=== PATIENT | female | born 1990 | race Caucasian/White ===

== ENCOUNTER → 2018-09-25 | Outpatient (CLI) | payer OTHER ==
[2018-09-25 18:35] LABS: BASO % 0.5 % (0.0-1.0); EOS # 0.1 10^3/uL (0.0-0.50); EOS % 1.5 % (0.0-3.0); HEMATOCRIT 43.8 % (36.0-47.0); HEMOGLOBIN 14.5 g/dl (12.0-15.5); LYMPH # 1.9 10^3/uL (1.5-6.5); LYMPH % 30.1 % (24.0-44.0); MEAN CORPUSCULAR HEMOGLOBIN 28.5 pg (27.0-33.0); MEAN CORPUSCULAR HGB CONC 33.1 g/dl (32.0-36.5); MEAN CORPUSCULAR VOLUME 86.1 fl (80.0-96.0); MONO # 0.5 10^3/uL (0.0-0.8); MONO % 8.6 % (0.0-5.0); NEUTROPHILS # 3.6 10^3/uL (1.8-7.7); NEUTROPHILS % 59.1 % (36.0-66.0); PLATELET COUNT, AUTOMATED 251 10^3/uL (150-450); RED BLOOD COUNT 5.09 10^6/uL (4.00-5.40); WHITE BLOOD COUNT 6.1 10^3/uL (4.0-10.0)
[2018-09-25 18:42] LABS: FREE T4 1.08 NG/DL (0.76-1.46); THYROID STIMULATING HORMONE 1.92 uIU/ML (0.358-3.740)
[2018-09-25 19:38] LABS: CHLAMYDIA DNA AMPLIFICATION NEGATIVE (NEGATIVE); GC DNA AMPLIFICATION NEGATIVE (NEGATIVE)
[2018-09-26 11:01] LABS: TOTAL 25(OH) VITAMIN D 11.7 NG/ML (30.0-100.0)
== END ==
LOC: M SMT 11:01
PROVIDERS: ATTEND Family Medicine
DX: Z13.29 Encounter for screening for other suspected endocrine disorder (principal); Z13.0 Encounter for screening for diseases of the blood and blood-forming organs and certain disorders involving the immune mechanism

== ENCOUNTER → 2018-10-07 | Outpatient (REF) | payer OTHER | LOC: M LAB REF 17:14 | PROVIDERS: ATTEND Physician Assistant | DX: R30.0 Dysuria (principal) ==

== ENCOUNTER 2018-11-29 07:14 | Emergency (ER) | payer OTHER ==
[~2018-11-29] VITALS: Ht 165.1 cm; Wt 84.1 kg
[2018-11-29] MEDS ORDERED: D31000CA4 PO (07:21)
[2018-11-29] MEDS ORDERED: ZOLO50TA PO (07:21)
[2018-11-29 08:10] LABS: BILIRUBIN, URINE MANUAL OBSCURED (NEGATIVE); GLUCOSE, URINE (UA) MANUAL NEGATIVE (NEGATIVE); KETONE, URINE MANUAL OBSCURED mg/dL (NEGATIVE); UROBILINOGEN, URINE MANUAL OBSCURED mg/dl (NORMAL)
[2018-11-29] MEDS ORDERED: PHENAZOPYRIDINE 100 MG TAB PO ONE (09:00)
[2018-11-29] MEDS ORDERED: BACTRIM 160MG/800MG DS TAB PO ONE (09:00)
[2018-11-29 09:26] LABS: RBC, URINE TNTC /hpf (0-3)
[2018-11-29 09:27] LABS: BACTERIA, URINE SMALL AMOUNT; RENAL EPITHELIAL CELLS, URINE MOD AMOUNT /hpf; SQUAMOUS EPITHELIAL CELL URINE SMALL AMOUNT /hpf (SMALL AMT)
[2018-11-29 09:28] LABS: AMORPHOUS SEDIMENT, URINE SMALL AMOUNT (NEGATIVE)
[2018-11-29] MEDS ORDERED: SULF1TAB93 PO (09:28)
[2018-11-29 09:38] VITALS: BP 126/78
[2018-11-29 10:07] LABS: HYALINE CAST, URINE NONE SEEN /lpf (0-1)
== END 2018-11-29 09:39 | disposition home or self-care (01) ==
LOC: M ED 07:14
DX: N39.0 Urinary tract infection, site not specified (principal); F41.9 Anxiety disorder, unspecified; Z87.448 Personal history of other diseases of urinary system; Z79.899 Other long term (current) drug therapy

== ENCOUNTER → 2019-02-14 | Outpatient (REF) | payer OTHER ==
[~2019-02-14] MED LIST: D31000CA4 PO; SULF1TAB93 PO; ZOLO50TA PO
[2019-02-18 10:50] LABS: APPEARANCE, URINE CLOUDY (CLEAR); BILIRUBIN, URINE AUTO NEGATIVE (NEGATIVE); BLOOD, URINE BLOOD 2+ (NEGATIVE); COLOR, URINE YELLOW (YELLOW); GLUCOSE, URINE (UA) AUTO NEGATIVE (NEGATIVE); KETONE, URINE AUTO NEGATIVE (NEGATIVE); LEUKOCYTE ESTERASE, URINE AUTO 3+ (NEGATIVE); NITRITE, URINE AUTO POSITIVE (NEGATIVE); PROTEIN, URINE AUTO 1+ mg/dL (NEGATIVE); SPECIFIC GRAVITY URINE AUTO 1.019 (1.002-1.035); UROBILINOGEN, URINE AUTO 0.2 mg/dL (0.0-2.0); WBC, URINE AUTO TNTC /HPF (0-3)
[2019-02-18 10:51] LABS: BACTERIA, URINE AUTO 1+ (NEGATIVE); CALCIUM OXALATE CRYSTALS MOD; MUCUS, URINE SMALL (NEGATIVE); RBC, URINE AUTO 9 /HPF (0-3); SQUAMOUS EPITHELIAL CELL UR AU 1 /HPF (0-6)
== END ==
LOC: M LAB REF 10:35
PROVIDERS: ATTEND Physician Assistant Medical
DX: N39.0 Urinary tract infection, site not specified (principal)

== ENCOUNTER → 2019-07-20 | Outpatient (REF) | payer OTHER ==
[2019-07-20 16:52] LABS: INFLUENZA A AMPLIFICATION NEGATIVE (NEGATIVE); INFLUENZA B AMPLIFICATION NEGATIVE (NEGATIVE)
== END ==
LOC: M LAB REF 16:15
PROVIDERS: ATTEND Physician Assistant Medical
DX: R50.9 Fever, unspecified (principal); M79.10 Myalgia, unspecified site

== ENCOUNTER → 2019-10-06 | Outpatient (CLI) | payer OTHER ==
[2019-10-06 19:48] LABS: FREE T4 1.11 NG/DL (0.76-1.46); THYROID STIMULATING HORMONE 1.73 uIU/ML (0.358-3.740); TOTAL 25(OH) VITAMIN D 32.7 NG/ML (30.0-100.0)
== END ==
LOC: M LAB 17:19
PROVIDERS: ATTEND Family Medicine
DX: E55.9 Vitamin D deficiency, unspecified (principal)

== ENCOUNTER → 2020-10-20 | Outpatient (CLI) | payer OTHER ==
[2020-10-20 16:30] LABS: ALBUMIN 4.2 GM/DL (3.2-5.2); ALT/SGPT 24 U/L (12-78); BILIRUBIN,TOTAL 0.6 MG/DL (0.2-1.0); BLOOD UREA NITROGEN 9 MG/DL (7-18); CALCIUM LEVEL 9.1 MG/DL (8.5-10.1); CARBON DIOXIDE LEVEL 29 MEQ/L (21-32); CHLORIDE LEVEL 106 MEQ/L (98-107); CHOLESTEROL LEVEL 175 MG/DL (<200); CHOLESTEROL RISK RATIO 3.977 (<5); CREATININE FOR GFR 0.77 MG/DL (0.55-1.30); GLOMERULAR FILTRATION RATE > 60.0 (>60); GLUCOSE, FASTING 77 MG/DL (70-100); HDL CHOLESTEROL 44 MG/DL (>40); LDL CHOLESTEROL 110 MG/DL (<100); NON-HDL-C 131 MG/DL; SODIUM LEVEL 141 MEQ/L (136-145); TOTAL PROTEIN 7.4 GM/DL (6.4-8.2); TRIGLYCERIDES LEVEL 107 MG/DL (<150)
[2020-10-20 16:34] LABS: BASO % 0.6 % (0.0-1.0); EOS # 0.2 10^3/uL (0.0-0.5); EOS % 2.5 % (0.0-3.0); HEMATOCRIT 40.8 % (36.0-47.0); HEMOGLOBIN 13.4 g/dl (12.0-15.5); LYMPH % 27.2 % (24.0-44.0); MEAN CORPUSCULAR HEMOGLOBIN 28.8 pg (27.0-33.0); MEAN CORPUSCULAR HGB CONC 32.8 g/dl (32.0-36.5); MEAN CORPUSCULAR VOLUME 87.7 fl (80.0-96.0); MONO # 0.8 10^3/uL (0.0-0.8); MONO % 10.3 % (2.0-8.0); NEUTROPHILS # 4.3 10^3/uL (1.5-8.5); NEUTROPHILS % 59.1 % (36.0-66.0); PLATELET COUNT, AUTOMATED 290 10^3/uL (150-450); RED BLOOD COUNT 4.65 10^6/uL (4.00-5.40); WHITE BLOOD COUNT 7.3 10^3/uL (4.0-10.0)
== END ==
LOC: M WUC 11:01
PROVIDERS: ATTEND Physician Assistant
DX: E55.9 Vitamin D deficiency, unspecified (principal); Z13.220 Encounter for screening for lipoid disorders

== ENCOUNTER 2021-06-30 02:00 | Emergency (ER) | payer OTHER ==
[~2021-06-30] VITALS: Ht 165.1 cm; Wt 100.9 kg
[~2021-06-30 02:00] MED LIST changes: +BACTDSTA PO; -SULF1TAB93 PO
[2021-06-30] MEDS ORDERED: IBUP200C29 PO (02:08)
[2021-06-30] MEDS ORDERED: VENTAER INH (02:08)
--- OUTSIDE RECORDS SUMMARY | 2021-06-30 02:08 | CCD ---
Author Author [facility] Organization [facility] Address Unknown Phone Unavailable Care Team Providers Care Broadcast Traffic Coordinator Name Role Phone GWENDOLYN-ANUEL, JAMAR DO Unavailable Unavailable GWENDOLYN-ANUEL, JAMAR DO Unavailable Unavailable GWENDOLYN-ANUEL, JAMAR DO Unavailable Unavailable GWENDOLYN-ANUEL, JAMAR DO Unavailable Unavailable GWENDOLYN-ANUEL, JAMAR DO Unavailable Unavailable GWENDOLYN-ANUEL, JAMAR DO Unavailable Unavailable GWENDOLYN-ANUEL, JAMAR DO Unavailable Unavailable GWENDOLYN-ANUEL, JAMAR DO Unavailable Unavailable GWENDOLYN-ANUEL, JAMAR DO Unavailable Unavailable GWENDOLYN-ANUEL, JAMAR DO Unavailable Unavailable GWENDOLYN-ANUEL, JAMAR DO Unavailable Unavailable GWENDOLYN-ANUEL, JAMAR DO Unavailable Unavailable GWENDOLYN-ANUEL, JAMAR DO Unavailable Unavailable GWENDOLYN-ANUEL, JAMAR DO Unavailable Unavailable GWENDOLYN-ANUEL, JAMAR DO Unavailable Unavailable GWENDOLYN-ANUEL, JAMAR DO Unavailable Unavailable GWENDOLYN-ANUEL, JAMAR DO Unavailable Unavailable GWENDOLYN-ANUEL, JAMAR DO Unavailable Unavailable GWENDOLYN-ANUEL, JAMAR DO Unavailable Unavailable GWENDOLYN-ANUEL, JAMAR DO Unavailable Unavailable GWENDOLYN-ANUEL, JAMAR DO Unavailable Unavailable GWENDOLYN-ANUEL, JAMAR DO Unavailable Unavailable GWENDOLYN-ANUEL, JAMAR DO Unavailable Unavailable GWENDOLYN-ANUEL, JAMAR DO Unavailable Unavailable GWENDOLYN-ANUEL, JAMAR DO Unavailable Unavailable GWENDOLYN-ANUEL, JAMAR DO Unavailable Unavailable GWENDOLYN-ANUEL, JAMAR DO Unavailable Unavailable GWENDOLYN-ANUEL, JAMAR DO Unavailable Unavailable GWENDOLYN-ANUEL, JAMAR DO Unavailable Unavailable GWENDOLYN-ANUEL, JAMAR DO Unavailable Unavailable GWENDOLYN-ANUEL, JAMAR DO Unavailable Unavailable GWENDOLYN-ANUEL, JAMAR DO Unavailable Unavailable GWENDOLYN-ANUEL, JAMAR DO Unavailable Unavailable GWENDOLYN-ANUEL, JAMAR DO Unavailable Unavailable GWENDOLYN-ANUEL, JAMAR DO Unavailable Unavailable GWENDOLYN-ANUEL, JAMAR DO Unavailable Unavailable GWENDOLYN-ANUEL, JAMAR DO Unavailable Unavailable GWENDOLYN-ANUEL, JAMAR DO Unavailable Unavailable GWENDOLYN-ANUEL, JAMAR DO Unavailable Unavailable GWENDOLYN-ANUEL, JAMAR DO Unavailable Unavailable GWENDOLYN-ANUEL, JAMAR DO Unavailable Unavailable GWENDOLYN-ANUEL, JAMAR DO Unavailable Unavailable GWENDOLYN-ANUEL, JAMAR DO Unavailable Unavailable GWENDOLYN-ANUEL, JAMAR DO Unavailable Unavailable GWENDOLYN-ANUEL, JAMAR DO Unavailable Unavailable GWENDOLYN-ANUEL, JAMAR DO Unavailable Unavailable GWENDOLYN-ANUEL, JAMAR DO Unavailable Unavailable GWENDOLYN-ANUEL, JAMAR DO Unavailable Unavailable GWENDOLYN-ANUEL, JAMAR DO Unavailable Unavailable GWENDOLYN-ANUEL, JAMAR DO Unavailable Unavailable GWENDOLYN-ANUEL, JAMAR DO Unavailable Unavailable GWENDOLYN-ANUEL, JAMAR DO Unavailable Unavailable GWENDOLYN-ANUEL, JAMAR DO Unavailable Unavailable GWENDOLYN-ANUEL, JAMAR DO Unavailable Unavailable GWENDOLYN-ANUEL, JAMAR DO Unavailable Unavailable GWENDOLYN-ANUEL, JAMAR DO Unavailable Unavailable GWENDOLYN-ANUEL, JAMAR DO Unavailable Unavailable GWENDOLYN-ANUEL, JAMAR DO Unavailable Unavailable GWENDOLYN-ANUEL, JAMAR DO Unavailable Unavailable GWENDOLYN-ANUEL, JAMAR DO Unavailable Unavailable GWENDOLYN-ANUEL, JAMAR DO Unavailable Unavailable GWENDOLYN-ANUEL, JAMAR DO Unavailable Unavailable GWENDOLYN-ANUEL, JAMAR DO Unavailable Unavailable GWENDOLYN-ANUEL, JAMAR DO Unavailable Unavailable GWENDOLYN-ANUEL, JAMAR DO Unavailable Unavailable GWENDOLYN-ANUEL, JAMAR DO Unavailable Unavailable GWENDOLYN-ANUEL, JAMAR DO Unavailable Unavailable GWENDOLYN-ANUEL, JAMAR DO Unavailable Unavailable GWENDOLYN-ANUEL, JAMAR DO Unavailable Unavailable GWENDOLYN-ANUEL, JAMAR DO Unavailable Unavailable GWENDOLYN-ANUEL, JAMAR DO Unavailable Unavailable GWENDOLYN-ANUEL, JAMAR DO Unavailable Unavailable GWENDOLYN-ANUEL, JAMAR DO Unavailable Unavailable GWENDOLYN-ANUEL, JAMAR DO Unavailable Unavailable GWENDOLYN-ANUEL, JAMAR DO Unavailable Unavailable GWENDOLYN-ANUEL, JAMAR DO Unavailable Unavailable GWENDOLYN-ANUEL, JAMAR DO Unavailable Unavailable GWENDOLYN-ANUEL, JAMAR DO Unavailable Unavailable GWENDOLYN-ANUEL, JAMAR DO Unavailable Unavailable GWENDOLYN-ANUEL, JAMAR DO Unavailable Unavailable GWENDOLYN-ANUEL, JAMAR DO Unavailable Unavailable GWENDOLYN-ANUEL, JAMAR DO Unavailable Unavailable GWENDOLYN-ANUEL, JAMAR DO Unavailable Unavailable GWENDOLYN-ANUEL, JAMAR DO Unavailable Unavailable O'jcarlos, A Huber PA Unavailable Unavailable O'jcarlos, A Huber PA Unavailable Unavailable O'jcarlos, A Huber PA Unavailable Unavailable O'jcarlos, A Huber PA Unavailable Unavailable O'jcarlos, A Huber PA Unavailable Unavailable O'jcarlos, A Huber PA Unavailable Unavailable O'jcarlos, A Huber PA Unavailable Unavailable O'jcarlos, A Huber PA Unavailable Unavailable O'jcarlos, A Huber PA Unavailable Unavailable O'jcarlos, A Huber PA Unavailable Unavailable O'jcarlos, A Huber PA Unavailable Unavailable O'jcarlos, A Huber PA Unavailable Unavailable O'jcarlos, A Huber PA Unavailable Unavailable O'jcarlos, A Huber PA Unavailable Unavailable O'jcarlos, A Huber PA Unavailable Unavailable O'jcarlos, A Huber PA Unavailable Unavailable O'jcarlos, A Huber PA Unavailable Unavailable O'jcarlos, A Huber PA Unavailable Unavailable O'jcarlos, A Huber PA Unavailable Unavailable O'jcarlos, A Huber PA Unavailable Unavailable O'jcarlos, A Huber PA Unavailable Unavailable O'jcarlos, A Huber PA Unavailable Unavailable O'jcarlos, A Huber PA Unavailable Unavailable O'jcarlos, A Huber PA Unavailable Unavailable O'jcarlos, A Huber PA Unavailable Unavailable O'jcarlos, A Huber PA Unavailable Unavailable O'jcarlos, A Huber PA Unavailable Unavailable O'jcarlos, A Huber PA Unavailable Unavailable O'jcarlos, A Huber PA Unavailable Unavailable O'jcarlos, A Huber PA Unavailable Unavailable O'jcarlos, A Huber PA Unavailable Unavailable O'jcarlos, A Huber PA Unavailable Unavailable O'jcarlos, A Huber PA Unavailable Unavailable Re-disclosure Warning The records that you are about to access may contain information from federally-assisted alcohol or drug abuse programs. If such information is present, then the following federally mandated warning applies: This information has been disclosed to you from records protected by federal confidentiality rules (42 CFR part 2). The federal rules prohibit you from making any further disclosure of this information unless further disclosure is expressly permitted by the written consent of the person to whom it pertains or as otherwise permitted by 42 CFR part 2. A general authorization for the release of medical or other information is NOT sufficient for this purpose. The Federal rules restrict any use of the information to criminally investigate or prosecute any alcohol or drug abuse patient.The records that you are about to access may contain highly sensitive health information, the redisclosure of which is protected by Article 27-F of the [facility] Public Health law. If you continue you may have access to information: Regarding HIV / AIDS; Provided by facilities licensed or operated by the [facility] Office of Mental Health; or Provided by the [facility] Office for People With Developmental Disabilities. If such information is present, then the following [facility] mandated warning applies: This information has been disclosed to you from confidential records which are protected by state law. State law prohibits you from making any further disclosure of this information without the specific written consent of the person to whom it pertains, or as otherwise permitted by law. Any unauthorized further disclosure in violation of state law may result in a fine or penitentiary sentence or both. A general authorization for the release of medical or other information is NOT sufficient authorization for further disc losure. Family History Family Member Name Family Member Gender Family Member Status Date o f Status Description Data Source(s) Unknown Female Problem [facility] ([facility]) Unknown Unknown Problem [facility] ([facility] Unknown Unknown Problem [facility] ([facility]) Encounters Encounter Providers Location Date Indications Data Source(s ) Outpatient Attender: Huber REEVES [facility] 05/18/2021 09:20:00 AM EDT [facility] ([facility]) Outpatient Attender: JAMAR EASLEY DO [facility] 10/25/2020 11:00:00 AM EDT [facility] ([facility]) Outpatient Attender: Huber REEVES [facility] 10/18/2020 10:00:00 AM EST [facility] ([facility]) Immunizations Vaccine Date Status Description Data Source(s) New in 2012. IIV4 05/18/2021 09:55:00 AM EDT completed [facility] ([facility]) COVID-19 VACCINE Pfizer 02/17/2021 12:00:00 AM EDT completed [facility] Vaccine Series Complete: YESThis Data wa s Submitted to [facility] Via [employer]. COVID-19 VACC, MRNA(PFIZER)/PF 01/27/2021 12:00:00 AM EDT completed [facility] COVID-19 VACCINE Pfizer 01/27/2021 12:00:00 AM EDT completed [facility] Vaccine Series Complete: NOThis Data was Submitted to [facility] Via [employer]. Medications Medication Brand Name Start Date Product Form Dose Route Admi nistrative Instructions Pharmacy Instructions Status Indications Reaction Description Data Source(s) 10 mg 05/20/2021 12:00:00 AM EDT tablet 180 TAKE 1 TABLET BY MOUTH EVERY 8 HOURS NEEDED FOR ANXIETY AND UP TO 3 BEFORE BED TO HELP WITH SLEEP IF NEEDED MAX 6 DAY TAKE 1 TABLET BY MOUTH EVERY 8 HOURS NEEDED FOR ANXIETY AND UP TO 3 BEFORE BED TO HELP WITH SLEEP IF NEEDED MAX 6 DAY SOLD: 06/02/2021 [facility] 25 mg 05/19/2021 12:00:00 AM EDT tablet 14 TAKE ONE TABLET BY MOUTH EVERY DAY FOR 7 DAYS AND THE 1 EVERY OTHER DAY FOR ANOTHER WEEK THEN DISCONTINUE TAKE ONE TABLET BY MOUTH EVERY DAY FOR 7 DAYS AND THE 1 EVERY OTHER DAY FOR ANOTHER WEEK THEN DISCONTINUE SOLD: 05/20/2021 [facility] Sertraline 25 MG Oral Tablet Sertraline HCL 05/18/2021 12:00:00 AM EDT ORAL active [facility] ([facility]) Hydroxyzine Hydrochloride 10 MG Oral Tablet Hydroxyzine HCL 05/18/2021 12:00:00 AM EDT ORAL active [facility] ([facility]) Insurance Providers Payer name Policy type / Coverage type Policy ID Covered constitution party ID Covered constitution party's relationship to storm Policy Storm Plan Information [facility] [id number] SP [id number] [facility] [id number] SP [id number] [facility] [employer] [id number] Self [id number] [facility] [employer] [id number] Self [id number] [facility] [employer] [id number] Self [id number] [facility] [employer] [id number] Self [id number] [facility] Lee Silber O [id number] S [id number] [facility] [employer] [id number] Self [facility] [employer] [id number] Self [facility] Lee Silber O [id number] [facility] [employer] [phone] Self Problems, Conditions, and Diagnoses Code Display Name Description Problem Type Effective Dates Data Source(s) E55.9 Vitamin D deficiency Vitamin D deficiency Problem 10/18/2020 12:00:00 AM EST [facility] ([facility]) Surgeries/Procedures Procedure Description Date Indications Data Source(s) OFFICE OUTPATIENT VISIT 15 MINUTES 05/18/2021 12:00:00 AM EDT [facility] ([facility]) Results ID Date Data Source [id number] 10/25/2020 10:58:00 AM EDT [facility] ([facility]) Name Value Range Interpretation Code Description Data Amanda rce(s) Supporting Document(s) Laboratory test finding (navigational concept) Laboratory test result [facility] ([facility]) ID Date Data Source [id number] 10/25/2020 10:58:00 AM EDT [facility] ([facility]) Name Value Range Interpretation Code Description Data Amanda rce(s) Supporting Document(s) Chlamydia trachomatis rRNA [Presence] in Unspecified specimen by Probe and target amplification method Laboratory test result Normal (a pplies to non- numeric results) [facility]) Comment Laboratory test result [facility] ([facility]) The analytical performance characteristi cs of this assay, when used to test SurePath(TM) specimens have been determined by [employer]. The modifications have not been cleared or approved by the FDA. This assay has been validated pursuant to the CLIA regulations and is used for clinical purposes. For additional information, please refer to https://education.Kamida/faq/KEK632 (This link is being provided for informa tion/ educational purposes only.) Neisseria gonorrhoeae rRNA [Presence] in Unspecified specimen by Probe and target amplification method Laboratory test result Normal (a pplies to non- numeric results) [facility]) ID Date Data Source [id number] 10/25/2020 10:58:00 AM EDT [facility] ([facility]) Name Value Range Interpretation Code Description Data Amanda rce(s) Supporting Document(s) Last menstrual period start date Laboratory test result Normal (applies to non-numeric results) [facility]) None given Service comment Laboratory test result Normal (a pplies to non-numeric results) [facility]) Clinical information Laboratory test result Norm al (applies to non-numeric results) [facility]) Routine exam Date of previous biopsy Laboratory test result N ormal (applies to non-numeric results) [facility]) None given Date of previous PAP smear Laboratory test result Normal (applies to non- numeric results) [facility]) None given General categories [Interpretation] of C ervical or vaginal smear or scraping by Cyto stain Laboratory test result Normal (applies to non-numeric results) [facility]) Statement of adequacy [Interpretation] o f Cervical or vaginal smear or scraping by Cyto stain Laboratory test result Normal (applies to non-nu meric results) [facility]) Satisfactory for evaluation. Endocervical/transformation zone component present. Specimen source [Identifier] in Cervical or vaginal smear or scraping by Cyto stain Laboratory test result Normal (applies to non-numeric results) [facility] ([facility]) Cervix, Endocervix Microscopic observation [Identifier] in Cervix by Cyto stain Laboratory test result Normal (applies to non-numeric results) [facility]) Negative for intraepithelial lesion or m alignancy. Microorganism identified in Cervical or vaginal smear or scraping by Cyto stain Laboratory test result Normal (applies to non-numeric results) [facility] ([facility]) Cytology study comment Cervical or vaginal smear or sc raping Cyto stain Laboratory test result Normal (applies to non-numeric results) [facility] ([facility]) This Pap test has been evaluated with SWIIM System technology. Polysomnographic Tech who read Cyto stain of Cervical or vaginal smear or scraping Laboratory test result Normal (applies to non-numeric results) [facility]) J, CT(ASCP) CT screening location: [place] [address] . Polysomnographic Tech who read Cyto stain of Cervical or vaginal smear or scraping Laboratory test result Normal (applies to non-numeric results) [facility] ([facility]) Pathologist who read Cyto stain of Cervical or vaginal smear or scraping Laboratory test result Normal (applies to non-numeric results) [facility] ([facility]) Comment Laboratory test result [facility] ([facility]) EXPLANATORY NOTE: The Pap is a screening test for cervical cancer. It is not a diagnostic test and is subject to false negative and false positive results. It is most reliable when a satisfactory sample, regularly obtained, is submitted with relevant clinical findings and history, and when the Pap result is evaluated along with historic and current clinical information. ID Date Data Source [id number] 10/25/2020 10:58:00 AM EDT [facility] ([facility]) Name Value Range Interpretation Code Description Data Amanda rce(s) Supporting Document(s) Service comment Laboratory test result [facility] ([facility]) This order for age-based cervical cancer and STI screening follows ACOG guidelines(PB 168, 140, DVQ159). See individual assays for performing site location. ID Date Data Source [id number] 10/20/2020 11:01:00 AM EST [facility] ([facility]) Name Value Range Interpretation Code Description Data Amanda rce(s) Supporting Document(s) HDL Cholesterol 44 mg/dL Normal (applies to non-numeric results) [facility] ([facility]) Cholesterol Level 175 mg/dL Normal (applies to non-numeri c results) [facility] ([facility]) Triglycerides Level 107 mg/dL Normal (applies to non-nume mike results) [facility] ([facility]) LDL Cholesterol 110 mg/dL Above high normal [facility] ([facility]) Cholesterol Risk Ratio 3.977 Normal (applies to non-n umeric results) [facility] ([facility]) Non-HDL-C 131 mg/dL Normal (applies to non-numeric resul ts) [facility] ([facility]) ID Date Data Source [id number] 10/20/2020 11:01:00 AM EST [facility] ([facility]) Name Value Range Interpretation Code Description Data Amanda rce(s) Supporting Document(s) Calcidiol [Mass/volume] in Serum or Plasma 32.0 ng/mL 30.0- 100.0 Normal (applies to non-numeric results) [facility] ([facility]) ID Date Data Source [id number] 10/20/2020 11:01:00 AM EST [facility] ([facility]) Name Value Range Interpretation Code Description Data Amanda rce(s) Supporting Document(s) Glucose, Fasting 77 mg/dL 70-100 Normal (applies to non-numeric results) [facility] ([facility]) Blood Urea Nitrogen 9 mg/dL 7-18 Normal (applies to non-nume mike results) [facility] ([facility]) Glomerular Filtration Rate Laboratory test result Normal (applies to non- numeric results) [facility] ([facility]) <content>Units are mL/min/1.73 m2</content>
<content></content>
<content>Chronic Kidney Disease Staging per NKF:</content>
<content></content>
<content>Stage I & II GFR >=60 Normal to Mildly Decreased</content>
<content>Stage III GFR 30- 59 Moderately Decreased</content>
<content>Stage IV GFR 15-29 Severely Decreased</content>
<content>Stage V GFR <15 Very Little GFR Left</content>
<content>ESRD GFR <15 on TOP IRONER</content>
<content></content> Creatinine For GFR 0.77 mg/dL 0.55-1.30 Normal (applies to non -numeric results) [facility] ([facility]) Sodium Level 141 meq/L 136-145 Normal (applies to non-numeric res ults) [facility] ([facility]) Carbon Dioxide Level 29 meq/L 21-32 Normal (applies to non-num cris results) [facility] Potassium Serum 4.0 meq/L 3.5-5.1 Normal (applies to non-numeric results) [facility] ([facility]) Chloride Level 106 meq/L 98-107 Normal (applies to non-numeric r esults) [facility] ([facility]) Anion Gap 6 meq/L 8-16 Below low normal [facility] Calcium Level 9.1 mg/dL 8.5-10.1 Normal (applies to non-numeric re sults) [facility] ([facility]) Ast/Sgot 10 U/L 7-37 Normal (applies to non-numeric resul ts) [facility] ([facility]) Alkaline Phosphatase 78 U/L 45-117 Normal (applies to non-num cris results) [facility] ([facility]) Alt/SGPT 24 U/L 12-78 Normal (applies to non-numeric resul ts) [facility] ([facility]) Albumin 4.2 GM/DL 3.2-5.2 Normal (applies to non-numeric resul ts) [facility] ([facility]) Total Protein 7.4 GM/DL 6.4-8.2 Normal (applies to non-numeric re sults) [facility] ([facility]) Bilirubin,Total 0.6 mg/dL 0.2-1.0 Normal (applies to non-numeric results) [facility] ([facility]) Albumin/Globulin Ratio 1.3 1.2-2.2 Normal (applies to non-n umeric results) [facility] ([facility]) ID Date Data Source [id number] 10/20/2020 11:01:00 AM EST [facility] ([facility]) Name Value Range Interpretation Code Description Data Amanda rce(s) Supporting Document(s) Red Blood Count 4.65 10 4.00-5.40 Normal (applies to non-numeric results) [facility] ([facility]) White Blood Count 7.3 10 4.0-10.0 Normal (applies to non-numeri c results) [facility] ([facility]) Hemoglobin 13.4 g/dL 12.0-15.5 Normal (applies to non-numeric resul ts) [facility] ([facility]) Mean Corpuscular Volume 87.7 fl 80.0-96.0 Normal ( applies to non-numeric results) [facility] ([facility]) Mean Corpuscular Hemoglobin 28.8 pg 27.0-33.0 Norm al (applies to non-numeric results) [facility] ([facility]) Hematocrit 40.8 % 36.0-47.0 Normal (applies to non-numeric resul ts) [facility] ([facility]) Mean Corpuscular HGB Conc 32.8 g/dL 32.0-36.5 Normal (applies to non-numeric results) [facility] ([facility]) Red Cell Distribution Width 12.1 % 11.5-14.5 Norm al (applies to non-numeric results) [facility] ([facility]) Platelet Count, Automated 290 10 150-450 Normal (applies to non-numeric results) [facility] ([facility]) Lymph % 27.2 % 24.0-44.0 Normal (applies to non-numeric resul ts) [facility] ([facility]) Neutrophils % 59.1 % 36.0-66.0 Normal (applies to non-numeric re sults) [facility] ([facility]) Baso % 0.6 % 0.0-1.0 Normal (applies to non-numeric resul ts) [facility] ([facility]) Eos % 2.5 % 0.0-3.0 Normal (applies to non-numeric resul ts) [facility] ([facility]) [place] % 10.3 % 2.0-8.0 Above high normal [facility] ([facility]) Immature Granulocyte % 0.3 % 0-3.0 Normal (applies to non-n umeric results) [facility] ([facility]) Neutrophils # 4.3 10 1.5-8.5 Normal (applies to non-numeric re sults) [facility] ([facility]) Nucleated Red Blood Cell % 0.0 % 0-0 Normal (applies to n on-numeric results) [facility] ([facility]) Lymph # 2.0 10 1.5-5.0 Normal (applies to non-numeric resul ts) [facility] ([facility]) [place] # 0.8 10 0.0-0.8 Normal (applies to non-numeric resul ts) [facility] ([facility]) Eos # 0.2 10 0.0-0.5 Normal (applies to non-numeric resul ts) [facility] ([facility]) Baso # 0.0 10 0.0-0.2 Normal (applies to non-numeric resul ts) [facility] ([facility]) ID Date Data Source [id number] 07/19/2020 12:00:00 AM EST [facility] Name Value Range Interpretation Code Description Data Amanda rce(s) Supporting Document(s) SARS-CoV2 Rapid Antigen [facility] and reported by [facility]. Procedure Social History Code Duration Value Status Description Data Source(s ) Smoking 10/25/2020 12:00:00 AM EDT Never Smoked Cigarettes com pleted Never Smoked Cigarettes [facility] ([facility]) Vital Signs ID Date Data Source UNK Name Value Range Interpretation Code Description Data Source(s) Systolic blood pressure 128 mm[Hg] 128 mm[Hg] M [facility] ([facility]) Diastolic blood pressure 68 mm[Hg] 68 mm[Hg] [facility] ([facility]) Body height 66 [in_i] 66 [in_i] [facility] ([facility]) 5'6" Body weight 215.38 [lb_av] 215.38 [lb_av] [facility] ([facility]) Body mass index (BMI) [Ratio] 34.8 kg/m2 34.8 k g/m2 [facility] ([facility]) Heart rate 81 /min 81 /min [facility] ([facility]) Respiratory rate 12 /min 12 /min [facility] ( [facility]) Body temperature 98.8 [degF] 98.8 [degF] MEDENT ([facility]) Oxygen saturation in Arterial blood by Pulse oximetry 99 % 99 % MEDENT ([facility]) [place] body weight 130 [lb_av] 130 [lb_av] MEDEN T ([facility]) Oxygen saturation in Arterial blood by Pulse oximetry 98 % 98 % MED[facility] ([facility]) Systolic blood pressure 124 mm[Hg] 124 mm[Hg] M EDENT ([facility]) Diastolic blood pressure 84 mm[Hg] 84 mm[Hg] MEDENT ([facility]) Body height 66 [in_i] 66 [in_i] [facility] ([facility]) 5'6" Body weight 223.00 [lb_av] 223.00 [lb_av] MEDEN T ([facility]) Body mass index (BMI) [Ratio] 36.0 kg/m2 36.0 k g/m2 [facility] ([facility]) Heart rate 84 /min 84 /min [facility] ([facility]) Respiratory rate 20 /min 20 /min MEDENT ( [facility]) Body temperature 99.0 [degF] 99.0 [degF] MEDENT ([facility]) [place] body weight 130 [lb_av] 130 [lb_av] MEDEN T ([facility]) Body height 66 [in_i] 66 [in_i] [facility] ([facility]) 5'6" Body weight 225.00 [lb_av] 225.00 [lb_av] MEDEN T ([facility]) Heart rate 89 /min 89 /min MEDENT ([facility]) Body mass index (BMI) [Ratio] 36.3 kg/m2 36.3 k g/m2 COLE ([facility]) [place] body weight 130 [lb_av] 130 [lb_av] EFREN T ([facility]) Respiratory rate 16 /min 16 /min COLE ( [facility]) Body temperature 98.1 [degF] 98.1 [degF] COLE ([facility]) Oxygen saturation in Arterial blood by Pulse oximetry 99 % 99 % COLE ([facility]) Systolic blood pressure 130 mm[Hg] 130 mm[Hg] [place] F[place] ([facility]) Diastolic blood pressure 72 mm[Hg] 72 mm[Hg] COLE ([facility])
--- OUTSIDE RECORDS SUMMARY | 2021-06-30 02:08 | CCD | Continuity of Care Document ---
Author Author Fina GARCIA PA Organization [place] [address] Phone [phone] Care Team Providers [employer] Architect Name Role Phone Oneyda Jacinto D.O. 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 Onset: 03/02/2015 Anxiety state Oneyda Jacinto D.O. Onset: 2014 Generalized anxiety disorder Oneyda Jacinto D.O. Onse t: 03/02/2015 Elevated blood-pressure reading without diagnosis of h ypertension Oneyda Mendes D.O. Onset: 03/02/2015 Vitamin D deficiency LALA Vaughn Onset: 10/18/2020 Social History Type Date Description Comments Sex Unknown Tobacco Use Start: Unknown Never Smoked Cigarettes Smoking Status Reviewed: 10/25/20 Never Smoked Cigarettes ETOH Use Currently consumes alcohol 1-2/w [place] Tobacco Use Start: Unknown Patient has never smoked Recreational Drug Use Denies Drug Use Exercise Type/Frequency Does not exercise Sun Exposure Uses sunscreen Seat Belt/Car Seat Always uses seat belt Allergies, Adverse Reactions, Alerts Description No Known Drug Allergies Medications Active Medications SIG Qnty Indications Ordering Provide r Date Sertraline HCL 25mg Tablets take one tablet by mouth once a day for one week and then every other day for another week before discontinue 14tabs Abby Jhaveri 05/18/2021 Hydroxyzine HCL 10mg Tablets 1 tab by mouth every 8 hours as needed for anxiety and up to three before bed to help with sleeping as needed 180tabs F41.1 Oneyda Jacinto D. O. 05/18/2021 Proair HFA 108(90Base) mcg/Act Aer osol 2 puffs every 4-6 hours as needed for shortness of breath 17gm J20. 9 Oneyda Jacinto D.O. 12/10/2018 Vitamin D3 5000Unit Capsules 1 by mouth every day 90caps Christel Jhaveri.O. 09/26 Immunizations CPT Code Status Date Vaccine Lot # [id number] Given 05/18/2021 Influenza Virus Vaccine, Quadrivalent, Slit Virus, Im Use [id number] Vital Signs Date Vital Result Comment 05/18/2021 9:21am BP Systolic 128 mmHg BP Diastolic 68 mmHg Height 66 inches 5'6" Weight 215.38 lb BMI (Body Mass Index) 34.8 kg/m2 Heart Rate 81 /min Respiratory Rate 12 /min Body Temperature 98.8 F O2 % BldC Oximetry 99 % [place] Body Weight 130 lb 10/25/2020 11:07am BP Systolic 124 mmHg BP Diastolic 84 mmHg Height 66 inches 5'6" Weight 223.00 lb BMI (Body Mass Index) 36.0 kg/m2 Heart Rate 84 /min Respiratory Rate 20 /min Body Temperature 99.0 F O2 % BldC Oximetry 98 % [place] Body Weight 130 lb Results Description No Information Available Procedures Date Code Description Status 05/18/2021 30172 Office/Outpatient Established Lo w MDM 20-29 Min Completed Medical Devices Description No Information Available Encounters Type Date Location Provider Dx Diagnosis Office Visit 05/18/2021 9:20a [facility] LALA Vaughn F41.1 Generalized anxiety disorder E55.9 Vitamin D deficiency, unspec ified Z23 Encounter for immunization Assessments Date Code Description Provider 05/18/2021 F41.1 Generalized anxiety disorder LALA Mojica 05/18/2021 E55.9 Vitamin D deficiency, unspecifie d LALA Vaughn 05/18/2021 Z23 Encounter for immunization LALA Miller Plan of Treatment Future Appointment(s):* 11/17/2021 9:00 am - LALA Vaughn at [facility] Functional Status Description No Information Available Mental Status Description No Information Available Referrals Description No Information Available
[2021-06-30] MEDS ORDERED: ACETAMINOPHEN 500 MG TAB PO ONE (06:50)
[2021-06-30] MEDS ORDERED: ALBUTEROL 90 MCG/ACT 8GM HFA INHALER INH ONE (07:00)
--- OUTSIDE RECORDS SUMMARY | 2021-06-30 07:11 | CCD ---
Author Author [facility] Address Unknown Phone Unavailable Care Team Providers Care Materials Engineering Technician Name Role Phone GWENDOLYN-ANUEL, JAMAR DO Unavailable [...] Unavailable Unavailable GWENDOLYN-ANUEL, JAMAR DO Unavailable Unavailable GWENDOLYN-NAUEL, JAMAR DO Unavailable Unavailable GWENDOLYN-ANUEL, JAMAR DO Unavailable Unavailable GWENDOLYN-ANUEL, JAMAR DO Unavailable Unavailable GWENDOLYN-ANUEL, JAMAR DO Unavailable Unavailable GWENDOLYN-ANUEL, JAMAR DO Unavailable Unavailable GWENDOLYN-ANUEL, JAMAR DO Unavailable Unavailable GWENDOLYN-ANUEL, JAMAR DO Unavailable Unavailable GWENDOLYN-ANUEL, JAMAR DO Unavailable Unavailable GWENDOLYN-ANUEL, JAMAR DO Unavailable Unavailable GWENDOLYN-ANUEL, JAMAR DO Unavailable Unavailable GWENDLOYN-ANUEL, JAMAR DO Unavailable Unavailable GWENDOLYN-ANUEL, JAMAR DO [...] is protected by Article 27-F of the [facility] Public Health law. If you continue you may have access to information: Regarding HIV / AIDS; Provided by facilities licensed or operated by the [facility] Office of Mental Health; or Provided by the [facility] Office for People With Developmental Disabilities. If such information is present, then the following [facility] mandated warning applies: This information has been [...] law may result in a fine or senior care sentence or both. A general authorization for the release of medical or other information is NOT sufficient authorization for further disc losure. Family History Family Member Name Family Member Gender Family Member Status Date o f Status Description Data Source(s) Unknown Female Problem [facility] ([facility]) Unknown Unknown Problem [facility] ([facility] Unknown Unknown Problem [facility] ([facility]) Encounters Encounter Providers Location Date Indications Data Source(s ) Outpatient Attender: Huber REEVES [facility] 05/18/2021 09:20:00 AM EDT [facility] ([facility]) Outpatient Attender: JAMAR EASLEY DO [facility] 10/25/2020 11:00:00 AM EDT [facility] ([facility]) Outpatient Attender: Huber REEVES [facility] 10/18/2020 10:00:00 AM EST [facility] ([facility]) Immunizations Vaccine Date Status Description Data Source(s) New in 2012. IIV4 05/18/2021 09:55:00 AM EDT completed [facility] ([facility]) COVID-19 VACCINE Pfizer 02/17/2021 12:00:00 AM EDT completed [facility] Vaccine Series Complete: YESThis Data wa s Submitted to [facility] Via [employer]. COVID-19 VACC, MRNA(PFIZER)/PF 01/27/2021 12:00:00 AM EDT completed [facility] COVID-19 VACCINE Pfizer 01/27/2021 12:00:00 AM EDT completed [facility] Vaccine Series Complete: NOThis Data was Submitted to [facility] Via [employer]. Medications Medication Brand Name Start Date Product [...] FOR ANOTHER WEEK THEN DISCONTINUE SOLD: 05/20/2021 [facility] Sertraline 25 MG Oral Tablet Sertraline HCL 05/18/2021 12:00:00 AM EDT ORAL active [facility] ([facility]) Hydroxyzine Hydrochloride 10 MG Oral Tablet Hydroxyzine HCL 05/18/2021 12:00:00 AM EDT ORAL active [facility] ([facility]) Insurance Providers Payer name Policy type / Coverage type Policy ID Covered constitution party ID Covered constitution party's relationship to storm Policy Storm Plan Information [facility] [id number] SP [id number] [facility] [id number] SP [id number] [facility] [employer] [id number] Self [id number] [facility] [employer] [id number] Self [id number] [facility] [employer] [id number] Self [id number] [facility] [employer] [id number] Self [id number] [facility] O [id number] S [id number] [facility] [employer] [id number] Self [facility] [employer] [id number] Self [facility] [employer] O [id number] D [id number] [facility] [employer] [id number] Self Problems, Conditions, and Diagnoses Code Display Name Description Problem Type Effective Dates Data Source(s) E55.9 Vitamin D deficiency Vitamin D deficiency Problem 10/18/2020 12:00:00 AM EST [facility] Surgeries/Procedures Procedure Description Date Indications Data Source(s) OFFICE OUTPATIENT VISIT 15 MINUTES 05/18/2021 12:00:00 AM EDT [facility] ([facility]) Results ID Date Data Source [id number] 10/25/2020 10:58:00 AM EDT [facility] ([facility]) Name Value Range Interpretation Code Description Data Amanda rce(s) Supporting Document(s) Laboratory test finding (navigational concept) Laboratory test result [facility] ([facility]) ID Date Data Source [id number] 10/25/2020 10:58:00 AM EDT [facility] ([facility]) Name Value Range Interpretation Code Description Data Amanda rce(s) Supporting Document(s) Chlamydia trachomatis rRNA [Presence] in Unspecified specimen by Probe and target amplification method Laboratory test result Normal (a pplies to non- numeric results) [facility]) Comment Laboratory test result [facility] ([facility]) The analytical performance characteristi cs of this assay, when used to test SurePath(TM) specimens have been determined by [employer]. The modifications have not been cleared or approved by the FDA. This assay has been validated pursuant to the CLIA regulations and is used for clinical purposes. For additional information, please refer to https://education.CellSpin/faq/CAU868 (This link is being provided for informa tion/ educational purposes only.) Neisseria gonorrhoeae rRNA [Presence] in Unspecified specimen by Probe and target amplification method Laboratory test result Normal (a pplies to non- numeric results) [facility]) ID Date Data Source [id number] 10/25/2020 10:58:00 AM EDT [facility]) Name Value Range Interpretation Code Description Data Amanda rce(s) Supporting Document(s) Last menstrual period start date Laboratory test result Normal (applies to non-numeric results) [facility]) None given Service comment Laboratory test result Normal (a pplies to non-numeric results) [facility]) Clinical information Laboratory test result Norm al (applies to non-numeric results) [facility]) Routine exam Date of previous biopsy Laboratory test result N ormal (applies to non-numeric results) [facility]) None given Date of previous PAP smear Laboratory test result Normal (applies to non- numeric results) [facility]) None given General categories [Interpretation] of C ervical or vaginal smear or scraping by Cyto stain Laboratory test result Normal (applies to non-numeric results) [facility]) Statement of adequacy [Interpretation] o f Cervical or vaginal smear or scraping by Cyto stain Laboratory test result Normal (applies to non-nu meric results) [facility]) Satisfactory for evaluation. Endocervical/transformation zone component present. Specimen source [Identifier] in Cervical or vaginal smear or scraping by Cyto stain Laboratory test result Normal (applies to non-numeric results) [facility] ([facility]) Cervix, Endocervix Microscopic observation [Identifier] in Cervix by Cyto stain Laboratory test result Normal (applies to non-numeric results) [facility]) Negative for intraepithelial lesion or m alignancy. Microorganism identified in Cervical or vaginal smear or scraping by Cyto stain Laboratory test result Normal (applies to non-numeric results) [facility] ([facility]) Cytology study comment Cervical or vaginal smear or sc raping Cyto stain Laboratory test result Normal (applies to non-numeric results) [facility]) This Pap test has been evaluated with PAS-Analytik technology. Community Relations Director who read Cyto stain of Cervical or vaginal smear or scraping Laboratory test result Normal (applies to non-numeric results) [facility]) DarANGEL(ASCP) CT screening location: [place] [address] . Community Relations Director who read Cyto stain of Cervical or vaginal smear or scraping Laboratory test result Normal (applies to non-numeric results) [facility]) Pathologist who read Cyto stain of Cervical or vaginal smear or scraping Laboratory test result Normal (applies to non-numeric results) [facility]) Comment Laboratory test result [facility]) EXPLANATORY NOTE: The Pap is a [...] current clinical information. ID Date Data Source [id number] 10/25/2020 10:58:00 AM EDT [facility] ([facility]) Name Value Range Interpretation Code Description Data Amanda rce(s) Supporting Document(s) Service comment Laboratory test result [facility]) This order for age-based cervical cancer and STI screening follows ACOG guidelines(PB 168, 140, QYP096). See individual assays for performing site location. ID Date Data Source [id number] 10/20/2020 11:01:00 AM EST [facility] ([facility]) Name Value Range Interpretation Code Description Data Amanda rce(s) Supporting Document(s) HDL Cholesterol 44 mg/dL Normal (applies to non-numeric results) [facility] ([facility]) Cholesterol Level 175 mg/dL Normal (applies to non-numeri c results) [facility] ([facility]) Triglycerides Level 107 mg/dL Normal (applies to non-nume mike results) [facility] ([facility]) LDL Cholesterol 110 mg/dL Above high normal [facility] ([facility]) Cholesterol Risk Ratio 3.977 Normal (applies to non-n umeric results) [facility] ([facility]) Non-HDL-C 131 mg/dL Normal (applies to non-numeric resul ts) [facility]) ID Date Data Source [id number] 10/20/2020 11:01:00 AM EST [facility] ([facility]) Name Value Range Interpretation Code Description Data Amanda rce(s) Supporting Document(s) Calcidiol [Mass/volume] in Serum or Plasma 32.0 ng/mL 30.0- 100.0 Normal (applies to non-numeric results) [facility]) ID Date Data Source [id number] 10/20/2020 11:01:00 AM EST [facility] ([facility]) Name Value Range Interpretation Code Description Data Amanda rce(s) Supporting Document(s) Glucose, Fasting 77 mg/dL 70-100 Normal (applies to non-numeric results) [facility] ([facility]) Blood Urea Nitrogen 9 mg/dL 7-18 Normal (applies to non-nume mike results) [facility] ([facility]) Glomerular Filtration Rate Laboratory test result Normal (applies to non- numeric results) [facility] ([facility]) <content>Units are mL/min/1.73 m2</content>
<content></content>
<content>Chronic Kidney Disease Staging per NKF:</content>
<content></content>
<content>Stage I & II GFR >=60 Normal to Mildly Decreased</content>
<content>Stage III GFR 30- 59 Moderately Decreased</content>
<content>Stage IV GFR 15-29 Severely Decreased</content>
<content>Stage V GFR <15 Very Little GFR Left</content>
<content>ESRD GFR <15 on SERVICE ADMINISTRATOR</content>
<content></content> Creatinine For GFR 0.77 mg/dL 0.55-1.30 Normal (applies to non -numeric results) [facility] ([facility]) Sodium Level 141 meq/L 136-145 Normal (applies to non-numeric res ults) [facility] ([facility]) Carbon Dioxide Level 29 meq/L 21-32 Normal (applies to non-num cris results) [facility] ([facility]) Potassium Serum 4.0 meq/L 3.5-5.1 Normal (applies to non-numeric results) [facility]) Chloride Level 106 meq/L 98-107 Normal (applies to non-numeric r esults) [facility] ([facility]) Anion Gap 6 meq/L 8-16 Below low normal [facility] Calcium Level 9.1 mg/dL 8.5-10.1 Normal (applies to non-numeric re sults) [facility] ([facility]) Ast/Sgot 10 U/L 7-37 Normal (applies to non-numeric resul ts) [facility] ([facility]) Alkaline Phosphatase 78 U/L 45-117 Normal (applies to non-num rcis results) [facility]) Alt/SGPT 24 U/L 12-78 Normal (applies to non-numeric resul ts) [facility] ([facility]) Albumin 4.2 GM/DL 3.2-5.2 Normal (applies to non-numeric resul ts) [facility]) Total Protein 7.4 GM/DL 6.4-8.2 Normal (applies to non-numeric re sults) [facility] ([facility]) Bilirubin,Total 0.6 mg/dL 0.2-1.0 Normal (applies to non-numeric results) [facility] ([facility]) Albumin/Globulin Ratio 1.3 1.2-2.2 Normal (applies to non-n umeric results) [facility] ([facility]) ID Date Data Source [id number] 10/20/2020 11:01:00 AM EST [facility] ([facility]) Name Value Range Interpretation Code Description Data Amanda rce(s) Supporting Document(s) Red Blood Count 4.65 10 4.00-5.40 Normal (applies to non-numeric results) [facility] ([facility]) White Blood Count 7.3 10 4.0-10.0 Normal (applies to non-numeri c results) [facility] ([facility]) Hemoglobin 13.4 g/dL 12.0-15.5 Normal (applies to non-numeric resul ts) [facility]) Mean Corpuscular Volume 87.7 fl 80.0-96.0 Normal ( applies to non-numeric results) [facility] ([facility]) Mean Corpuscular Hemoglobin 28.8 pg 27.0-33.0 Norm al (applies to non-numeric results) [facility] ([facility]) Hematocrit 40.8 % 36.0-47.0 Normal (applies to non-numeric resul ts) [facility]) Mean Corpuscular HGB Conc 32.8 g/dL 32.0-36.5 Normal (applies to non-numeric results) [facility] ([facility]) Red Cell Distribution Width 12.1 % 11.5-14.5 Norm al (applies to non-numeric results) [facility] ([facility]) Platelet Count, Automated 290 10 150-450 Normal (applies to non-numeric results) [facility] ([facility]) Lymph % 27.2 % 24.0-44.0 Normal (applies to non-numeric resul ts) [facility] ([facility]) Neutrophils % 59.1 % 36.0-66.0 Normal (applies to non-numeric re sults) [facility] ([facility]) Baso % 0.6 % 0.0-1.0 Normal (applies to non-numeric resul ts) [facility] ([facility]) Eos % 2.5 % 0.0-3.0 Normal (applies to non-numeric resul ts) [facility] ([facility]) [place] % 10.3 % 2.0-8.0 Above high normal [facility] ([facility]) Immature Granulocyte % 0.3 % 0-3.0 Normal (applies to non-n umeric results) [facility] ([facility]) Neutrophils # 4.3 10 1.5-8.5 Normal (applies to non-numeric re sults) [facility] ([facility]) Nucleated Red Blood Cell % 0.0 % 0-0 Normal (applies to n on-numeric results) [facility] ([facility]) Lymph # 2.0 10 1.5-5.0 Normal (applies to non-numeric resul ts) [facility] ([facility]) [place] # 0.8 10 0.0-0.8 Normal (applies to non-numeric resul ts) [facility] ([facility]) Eos # 0.2 10 0.0-0.5 Normal (applies to non-numeric resul ts) [facility] ([facility]) Baso # 0.0 10 0.0-0.2 Normal (applies to non-numeric resul ts) [facility] ([facility]) ID Date Data Source [id number] 07/19/2020 12:00:00 AM EST [facility] Name Value Range Interpretation Code Description Data Amanda rce(s) Supporting Document(s) SARS-CoV2 Rapid Antigen [facility] This lab was ordered by [facility] and reported by [facility]. Procedure Social History Code Duration Value Status Description Data Source(s ) Smoking 10/25/2020 12:00:00 AM EDT Never Smoked Cigarettes com pleted Never Smoked Cigarettes [facility] ([facility]) Vital Signs ID Date Data Source UNK Name Value Range Interpretation Code Description Data Source(s) Systolic blood pressure 128 mm[Hg] 128 mm[Hg] M [facility] ([facility]) Diastolic blood pressure 68 mm[Hg] 68 mm[Hg] [facility] ([facility]) Body height 66 [in_i] 66 [in_i] [facility] ([facility]) 5'6" Body weight 215.38 [lb_av] 215.38 [lb_av] [facility] T ([facility]) Body mass index (BMI) [Ratio] 34.8 kg/m2 34.8 k g/m2 [facility] ([facility]) Heart rate 81 /min 81 /min [facility] ([facility]) Respiratory rate 12 /min 12 /min [facility] ( [facility]) Body temperature 98.8 [degF] 98.8 [degF] [facility] ([facility]) Oxygen saturation in Arterial blood by Pulse oximetry 99 % 99 % [facility] ([facility]) [place] body weight 130 [lb_av] 130 [lb_av] [facility] T ([facility]) Oxygen saturation in Arterial blood by Pulse oximetry 98 % 98 % [facility] ([facility]) Systolic blood pressure 124 mm[Hg] 124 mm[Hg] M [facility] ([facility]) Diastolic blood pressure 84 mm[Hg] 84 mm[Hg] [facility] ([facility]) Body height 66 [in_i] 66 [in_i] [facility] ([facility]) 5'6" Body weight 223.00 [lb_av] 223.00 [lb_av] MED[facility] T ([facility]) Body mass index (BMI) [Ratio] 36.0 kg/m2 36.0 k g/m2 [facility] ([facility]) Heart rate 84 /min 84 /min [facility] ([facility]) Respiratory rate 20 /min 20 /min [facility] ( [facility]) Body temperature 99.0 [degF] 99.0 [degF] [facility] ([facility]) [place] body weight 130 [lb_av] 130 [lb_av] [facility] T ([facility]) Body height 66 [in_i] 66 [in_i] [facility] ([facility]) 5'6" Body weight 225.00 [lb_av] 225.00 [lb_av] [facility] T ([facility]) Body mass index (BMI) [Ratio] 36.3 kg/m2 36.3 k g/m2 [facility] ([facility]) Respiratory rate 16 /min 16 /min [facility] ( [facility]) Heart rate 89 /min 89 /min [facility] ([facility]) [place] body weight 130 [lb_av] 130 [lb_av] [facility] T ([facility]) Body temperature 98.1 [degF] 98.1 [degF] [facility] ([facility]) Oxygen saturation in Arterial blood by Pulse oximetry 99 % 99 % [facility] ([facility]) Systolic blood pressure 130 mm[Hg] 130 mm[Hg] M EDLUKE ([facility]) Diastolic blood pressure 72 mm[Hg] 72 mm[Hg] [facility] ([facility])
[2021-06-30 07:29] LABS: BASO % 0.2 % (0.0-1.0); EOS # 0.1 10^3/uL (0.0-0.5); EOS % 0.8 % (0.0-3.0); HEMATOCRIT 43.1 % (36.0-47.0); HEMOGLOBIN 14.1 g/dl (12.0-15.5); LYMPH # 2.1 10^3/uL (1.5-5.0); LYMPH % 13.3 % (24.0-44.0); MEAN CORPUSCULAR HEMOGLOBIN 28.6 pg (27.0-33.0); MEAN CORPUSCULAR HGB CONC 32.7 g/dl (32.0-36.5); MEAN CORPUSCULAR VOLUME 87.4 fl (80.0-96.0); MONO # 0.8 10^3/uL (0.0-0.8); MONO % 4.9 % (2.0-8.0); NEUTROPHILS % 80.3 % (36.0-66.0); PLATELET COUNT, AUTOMATED 305 10^3/uL (150-450); RED BLOOD COUNT 4.93 10^6/uL (4.00-5.40); WHITE BLOOD COUNT 16.1 10^3/uL (4.0-10.0)
[2021-06-30 08:02] LABS: CK-MB VALUE MASS < 1.0 NG/ML (<3.6); CPK CREATINE PHOSPHOKINASE 37 U/L (26-192); TROPONIN I < 0.02 NG/ML (< 0.10)
[2021-06-30 08:14] LABS: HCG, SERUM QUALITATIVE NEGATIVE (NEGATIVE)
[2021-06-30 08:20] LABS: ALT/SGPT 19 U/L (12-78); BILIRUBIN,TOTAL 0.6 MG/DL (0.2-1.0); BLOOD UREA NITROGEN 10 MG/DL (7-18); CALCIUM LEVEL 9.5 MG/DL (8.5-10.1); CARBON DIOXIDE LEVEL 29 MEQ/L (21-32); CHLORIDE LEVEL 104 MEQ/L (98-107); CREATININE FOR GFR 0.95 MG/DL (0.55-1.30); GLOMERULAR FILTRATION RATE > 60.0 (>60); GLUCOSE, FASTING 94 MG/DL (70-100); LDH LACTATE DEHYDROGENASE 257 U/L (84-246); POTASSIUM SERUM 4.3 MEQ/L (3.5-5.1); SODIUM LEVEL 139 MEQ/L (136-145); TOTAL PROTEIN 8.1 GM/DL (6.4-8.2)
[2021-06-30] MEDS ORDERED: ISOVUE-370 76% 100ML VIAL As Ordered ONE (08:31)
--- NOTE | 2021-06-30 08:49 | REP ---
INDICATION: Coronavirus workup COMPARISON: None. TECHNIQUE: Portable AP view of the chest FINDINGS: The mediastinum and cardiac silhouette are within normal limits for portable technique. The lung angulo are clear without acute consolidation, effusion, or pneumothorax. Skeletal structures are intact. IMPRESSION: No acute cardiopulmonary process appreciated. <Electronically signed by Jesus Lara > 06/30/21 0138
--- NOTE | 2021-06-30 09:03 | REP ---
INDICATION: r/o PE, pleuritic CP COMPARISON: None. TECHNIQUE: Axial contrast enhanced images from the thoracic inlet to the upper abdomen using pulmonary embolus technique with multiplanar re-formations. 75 ml Isovue 370 intravenous contrast material administered without complication. This CT examination was performed using the following dose reduction techniques: Automated exposure control, adjustment of mA and/or kv according to the patient's size, and use of iterative reconstruction technique. FINDINGS: Satisfactory enhancement of the pulmonary vasculature is achieved and no filling defects are identified to suggest pulmonary embolus. Further evaluation of the mediastinum demonstrates normal thoracic aorta, heart and pericardium. The bilateral lung angulo are well aerated and clear without consolidation, pleural effusion or pneumothorax. Tracheobronchial tree is patent. No nodule or mass lesion is identified. No adenopathy noted. There is a 4 mm noncalcified perifissural nodule along the minor fissure (image 42) as well as 3 mm noncalcified nodule along the periphery of the right lower lobe (image 44). Surrounding musculoskeletal structures intact IMPRESSION: 1. No evidence for pulmonary embolus. No acute mediastinal or pleural parenchymal process. 2. Two small noncalcified nodules as described above likely sequelae of prior granulomatous disease. Low risk patients require no further investigation while high risk patients may warrant 12 month follow-up examination to confirm stability. <Electronically signed by Jesus Lara > 06/30/21 [id number]
[2021-06-30 09:54] VITALS: O2SAT 92
[2021-06-30 11:09] VITALS: BP 124/78
--- NOTE | 2021-07-01 08:04 | ECGEPIP ---
[facility] - ED Test Date: 2021-06-30 Pat Name: ALEXX GORDON Department: Room: - Gender: Female Logistics Coordinator: LISSETTE : 1990 Requested By: TOSHIA Mistry PA-C Order Number: [id number] Reading MD: Niesha Severino Measurements Intervals [place] Rate: 81 P: 42 AL: 162 QRS: 45 QRSD: 86 T: 27 QT: 420 QTc: 487 Interpretive Statements Normal sinus rhythm Possible Left atrial enlargement Possible Inferior infarct , age undetermined NSTTW abnormalities No prior Electronically Signed on 07-01-2021 8:03:52 EST by Niesha Severino
--- NOTE | 2021-07-01 08:54 | ED PDOC ---
Post-Departure Follow-Up radiology rpeort faxed to Niesha Mejia MD Jul 01, 2021 08:54
== END 2021-06-30 11:10 | disposition home or self-care (01) ==
LOC: M ED 02:00
DX: J45.901 Unspecified asthma with (acute) exacerbation (principal); J06.9 Acute upper respiratory infection, unspecified; D72.829 Elevated white blood cell count, unspecified; R91.8 Other nonspecific abnormal finding of lung field; M19.90 Unspecified osteoarthritis, unspecified site; F41.9 Anxiety disorder, unspecified; Z79.899 Other long term (current) drug therapy
CPT/HCPCS: 71045; 71275; 80053; 81001; 82550; 82553; 83605; 83615; 84484; 84703; 85025; 85379; 87798; 93005; 94640; 99284; Q9967; U0002

== ENCOUNTER → 2021-07-26 | Outpatient (REF) | payer OTHER ==
[~2021-07-26] MED LIST changes: +IBUP200C29 PO; +VENTAER INH
== END ==
LOC: M LAB REF 19:41
PROVIDERS: ATTEND Family Medicine
DX: J06.9 Acute upper respiratory infection, unspecified (principal)

== ENCOUNTER → 2021-12-08 | Outpatient (REF) | payer OTHER | LOC: M LAB REF 14:52 | PROVIDERS: ATTEND Physician Assistant | DX: N39.0 Urinary tract infection, site not specified (principal) ==

== ENCOUNTER → 2022-10-07 | Outpatient (REF) | payer OTHER ==
[2022-10-07 18:36] LABS: APPEARANCE, URINE CLOUDY (CLEAR); BACTERIA, URINE AUTO NEGATIVE (NEGATIVE); BILIRUBIN, URINE AUTO NEGATIVE (NEGATIVE); BLOOD, URINE BLOOD 1+ (NEGATIVE); COLOR, URINE YELLOW (YELLOW); GLUCOSE, URINE (UA) AUTO NEGATIVE (NEGATIVE); KETONE, URINE AUTO NEGATIVE (NEGATIVE); LEUKOCYTE ESTERASE, URINE AUTO 2+ (NEGATIVE); MUCUS, URINE SMALL (NEGATIVE); NITRITE, URINE AUTO NEGATIVE (NEGATIVE); PROTEIN, URINE AUTO NEGATIVE (NEGATIVE); RBC, URINE AUTO 5 /HPF (0-3); SPECIFIC GRAVITY URINE AUTO 1.023 (1.002-1.035); SQUAMOUS EPITHELIAL CELL UR AU 14 /HPF (0-6); UROBILINOGEN, URINE AUTO 0.2 mg/dL (0.0-2.0); WBC, URINE AUTO 107 /HPF (0-3)
== END ==
LOC: M LAB REF 18:23
PROVIDERS: ATTEND Physician Assistant Medical
DX: N39.0 Urinary tract infection, site not specified (principal)

== ENCOUNTER → 2022-12-19 | Outpatient (REF) | payer OTHER | LOC: M LAB REF 17:45 | PROVIDERS: ATTEND Family Medicine | DX: N39.0 Urinary tract infection, site not specified (principal) ==

== ENCOUNTER → 2022-12-31 | Outpatient (REF) | payer OTHER ==
[2022-12-31 22:17] LABS: AMORPHOUS SEDIMENT MODERATE (NEGATIVE); APPEARANCE, URINE TURBID (CLEAR); BACTERIA, URINE AUTO NEGATIVE (NEGATIVE); BILIRUBIN, URINE AUTO NEGATIVE (NEGATIVE); BLOOD, URINE BLOOD 1+ (NEGATIVE); COLOR, URINE AMBER (YELLOW); GLUCOSE, URINE (UA) AUTO NEGATIVE (NEGATIVE); KETONE, URINE AUTO TRACE mg/dL (NEGATIVE); LEUKOCYTE ESTERASE, URINE AUTO 1+ (NEGATIVE); MUCUS, URINE SMALL (NEGATIVE); NITRITE, URINE AUTO NEGATIVE (NEGATIVE); PROTEIN, URINE AUTO 1+ mg/dL (NEGATIVE); RBC, URINE AUTO 0 /HPF (0-3); SQUAMOUS EPITHELIAL CELL UR AU 0 /HPF (0-6); WBC, URINE AUTO 2 /HPF (0-3)
== END ==
LOC: M LAB REF 21:39
PROVIDERS: ATTEND Physician Assistant Medical
DX: N39.0 Urinary tract infection, site not specified (principal)

== ENCOUNTER → 2024-10-08 | Outpatient (CLI) | payer OTHER | LOC: M WUC 15:16 | PROVIDERS: ATTEND Physician Assistant | DX: M25.562 Pain in left knee (principal); M91.41 Coxa magna, right hip; M91.42 Coxa magna, left hip; M25.559 Pain in unspecified hip ==